=== PATIENT | female | born 1970 | race Caucasian/White ===

== ENCOUNTER → 2017-03-03 | Outpatient (CLI) | payer OTHER | LOC: FIMAGING 11:07 | PROVIDERS: ATTEND Internal Medicine Cardiovascular Disease | DX: M54.9 Dorsalgia, unspecified (principal) ==

== ENCOUNTER 2018-03-10 14:51 | Emergency (ER) | payer OTHER ==
[2018-03-10] MEDS ORDERED: NS 1,000 ML IV ONE (15:03)
[2018-03-10] MEDS ORDERED: FAMOTIDINE 20 MG in NS 100 ML IV ONE (15:05)
[2018-03-10] MEDS ORDERED: ONDANSETRON 4 MG/2 ML VIAL IVP ONE (15:12)
--- NOTE | 2018-03-10 15:20 | EDPHY ---
H & P Time Seen by Provider: 03/10/18 15:02 HPI/ROS: HPI Abdominal pain. 47-year-old female by private vehicle. This patient reports that since Friday evening she has had nausea with associated right upper and right mid abdominal pain. She describes the pain as dull, aching and cramping. She reports that she has had some radiation of the pain to her right flank at times. She reports that she has had a decreased appetite. She reports that she usually is able to eat some solid foods and drink fluids in the morning but in the evening her nausea worsens and her pain increases in intensity. She has had 2-3 episodes of nonbilious nonbloody vomiting since Friday in association with this pain. She reports that her last bowel movement was 2 days ago. Denies any bloody or melenic stool. No diarrhea. Prior abdominal surgical history is significant for uterine fibroids. Last menstrual period about a month ago. She denies any urinary complaints. No change in diet. No ill contacts. No foreign travel. Her last meal was an organic fruit bar earlier this morning. She also had coffee in milk this morning. ROS: Constitutional: No fever, no chills. No weakness. Eyes: No discharge. No changes in vision. ENT: No sore throat. No nasal congestion or rhinorrhea. Respiratory: No cough. No shortness of breath. Cardiac: No chest pain, no palpitations. Gastrointestinal: As above, no diarrhea. Genitourinary: No hematuria. No dysuria or increased frequency with urination. Musculoskeletal: No back pain. No neck pain. No myalgias or arthralgias. Skin: No rashes. Neurological: No headache. No focal weakness or altered sensation. Past medical history: She is allergic to sulfa medications. She has a vague history of reactive airway disease thought to be secondary to a mild form of cystic fibrosis. Social history: Nonsmoker. No alcohol. She is . She is currently here by herself. Physical Exam: General Appearance: Alert, no distress. This patient is responding to questions appropriately and in full sentences. This patient appears well- hydrated and well-nourished. Eyes: Pupils equal and round no pallor or injection. No lid edema, erythema or injection. Respiratory: There are no retractions, lungs are clear to auscultation with good air movement bilaterally. Cardiovascular: Regular rate and rhythm. No murmur. Gastrointestinal: Abdomen is soft with mild and vague right upper quadrant and right mid abdominal tenderness on palpation, no masses, bowel sounds normal. No focal tenderness at McBurney's point. No Goer sign. Neurological: Motor sensory function is grossly intact. Cranial nerves are normal. Gait is normal. Skin: Warm and dry, no rashes. Musculoskeletal: Neck is supple and nontender. No CVA tenderness bilaterally. Extremities are symmetrical. All joints range without pain or impingement. Psychiatric: No agitation. No depression. Database: EKG: Imaging: Right upper quadrant abdominal ultrasound: Negative. Results were discussed with staff radiologist. CT scan abdomen and pelvis with IV contrast: Uterine fibroids otherwise this is a negative study. Procedures: Emergency department course: Vital signs reviewed and are normal. IV was placed. She was started on IV normal saline with 500 cc to 1 L to be given over the next hour. She currently is complaining of nausea. She will be given 20 mg of IV Pepcid and 4 mg of IV Zofran. She declines pain medication at this time. Emergency department workup will initially include blood work, urinalysis and right upper quadrant ultrasound. 4:00 p.m., the patient was re-evaluated, resting comfortably at this time. Repeat abdominal exam is unchanged from above. I discussed the results of her ultrasound and emergency department workup including blood work and urinalysis. CT scan of the abdomen and pelvis will be obtained to further evaluate for a source of her pain, nausea and vomiting. The patient endorses. 5:00 p.m., the patient was re-evaluated, resting comfortably at this time. Repeat abdominal exam she is soft, nontender nondistended. She has been drinking red isabel without issue. Results of her CT scan of her abdomen and pelvis discussed with her. I will have her follow up with her primary care physician for re-evaluation. She feels comfortable going home at this time. Return to emergency department precautions were thoroughly reviewed with her. All of her questions were answered. She was discharged from the emergency department in good condition. Differential Diagnosis: The differential diagnosis on this patient includes but is not limited to constipation, biliary colic, pyelonephritis/urinary tract infection, gastritis, pancreatitis. Appendicitis, bowel obstruction/volvulus unlikely. This represents a partial list of diagnoses considered. These considerations are based on history, physical exam, past history, reassessment and diagnostic testing. Smoking Status: Never smoked Constitutional: Initial Vital Signs Temperature (C) 37 C 03/10/18 15:01 Heart Rate 68 03/10/18 15:01 Respiratory Rate 16 03/10/18 15:01 Blood Pressure 137/87 H 03/10/18 15:01 O2 Sat (%) 97 03/10/18 15:01 O2 Delivery Mode Room Air Allergies/Adverse Reactions: gluten Allergy (Verified 03/10/18 15:04) Pt reports STOMACH ISSUES Sulfa (Sulfonamide Antibiotics) Allergy (Verified 03/10/18 15:04) Pt reports LIP SWELLING Home Medications: Medication Instructions Recorded Hypertonic Saline 03/10/18 Ondansetron Odt [Zofran Odt 4 mg 4 mg PO Q4PRN PRN #10 tab 03/10/18 (*)] Xopenex 03/10/18 Medical Decision Making - Diagnostics Imaging Results: Imaging Impressions Abdomen Ultrasound 03/10/18 15:12 Impression: Normal right upper quadrant ultrasound. Findings and recommendations discussed with Prisca Mulligan MD at 1552 hour, 03/10/2018. Abdomen CT 03/10/18 16:01 Impression: 1. No acute abdominopelvic process. 2. Large uterine fibroids, many of which are subserosal. If patient is having bulk or bleeding symptoms, may consider gynecologic consultation. 3. Bilateral adnexal cysts, normal if patient is premenopausal. Findings and recommendations discussed with Prisca Mulligan MD at 1634 hour, 03/10/2018. - Data Points Laboratory Results: 03/10/18 15:34 POC Sodium 137 mEq/L mEq/L (135-145) POC Potassium 3.5 mEq/L mEq/L (3.3-5.0) POC Chloride 103.0 mEq/L mEq/L (97-110) POC Total CO2 22 mEq/L mEq/L (22-31) POC BUN 7 mg/dL mg/dL (7-23) POC Creatinine 0.8 mg/dL mg/dL (0.6-1.0) POC Glucose 101 mg/dL H mg/dL (70-100) POC Calcium 9.2 mg/dL mg/dL (8.5-10.4) POC Total Bilirubin 1.0 mg/dL mg/dL (0.1-1.4) POC AST 23 IU/L IU/L (14-46) POC ALT 19 IU/L IU/L (9-52) POC Alk Phosphatase 55 IU/L IU/L (38-126) POC Total Protein 7.2 g/dL g/dL (6.3-8.2) POC Albumin 4.1 g/dL g/dL (3.5-5.0) Medications Given: Discontinued Medications Sodium Chloride (Ns) 1,000 mls @ 0 mls/hr IV EDNOW ONE; Wide Open PRN Reason: Protocol Stop: 03/10/18 15:04 Last Admin: 03/10/18 15:25 Dose: 1,000 mls Famotidine 20 mg/ Sodium (Chloride) 102 mls @ 408 mls/hr IV EDNOW ONE Stop: 03/10/18 15:19 Last Admin: 03/10/18 15:27 Dose: 102 mls Ondansetron HCl (Zofran) 4 mg IVP EDNOW ONE Stop: 03/10/18 15:13 Last Admin: 03/10/18 15:25 Dose: 4 mg Point of Care Test Results: CBC CBC Collection Date 03/10/18 CBC Collection Time 15:22 WBC 10.2 RBC 4.45 HGB 14.2 HCT 40.2 PLT 390 Neut # 7.2 Neut 70.1 LYMPH # 2.4 LYMPH 23.6 Other WBC # 0.6 Other WBC 6.3 MCV 90.3 Chemistry 03/10/18 15:34 POC Sodium 137 mEq/L mEq/L (135-145) POC Potassium 3.5 mEq/L mEq/L (3.3-5.0) POC Chloride 103.0 mEq/L mEq/L (97-110) POC Total CO2 22 mEq/L mEq/L (22-31) POC BUN 7 mg/dL mg/dL (7-23) POC Creatinine 0.8 mg/dL mg/dL (0.6-1.0) POC Glucose 101 mg/dL H mg/dL (70-100) POC Calcium 9.2 mg/dL mg/dL (8.5-10.4) POC Total Bilirubin 1.0 mg/dL mg/dL (0.1-1.4) POC AST 23 IU/L IU/L (14-46) POC ALT 19 IU/L IU/L (9-52) POC Alk Phosphatase 55 IU/L IU/L (38-126) POC Total Protein 7.2 g/dL g/dL (6.3-8.2) POC Albumin 4.1 g/dL g/dL (3.5-5.0) Comprehensive Metabolic Panel CMP Collection Date 03/10/18 CMP Collection Time 15:22 Urine Collection Date 03/10/18 Collection Time 15:20 HCG Results Negative Urine Dip Collection Date 03/10/18 Collection Time 15:20 Specific Earle (1.002-1.030) 1.015 PH (5.0-7.5) 5.5 Leukocytes (Negative) Negative Nitrites (Negative) Negative Protein (Negative) Negative Glucose (Negative) Negative Ketones (Negative) 2+ Urobilnogen (0.2-1.0 EU) 0.2 Bilirubin (Negative) Negative Blood (Negative) 1+ Departure - Departure Disposition: Home, Routine, Self-Care Clinical Impression: Abdominal pain, Nausea & vomiting, Uterine fibroid Condition: Good Instructions: Abdominal Pain (ED) Additional Instructions: Read and follow provided instructions. Follow-up with your primary care physician or OBGYN in 1-2 days for re- evaluation as discussed. Ibuprofen dosin mg every 6 hours with meals for the next 3 days only. Take only as needed for pain. Take medication as prescribed for nausea. Return to the emergency department for worsening pain, fever, vomiting and inability to keep fluids down despite medication or other serious concerns. Referrals: NONE *PRIMARY CARE P,. [Primary Care Provider] - As per Instructions Prescriptions: Ondansetron Odt [Zofran Odt 4 mg (*)] 4 mg PO Q4PRN PRN #10 tab PRN Reason: For Nausea & Vomiting
[2018-03-10] MEDS ORDERED: NS 100 ML BAG IV ONE (15:30)
[2018-03-10 17:21] VITALS: BP 129/79
== END 2018-03-10 17:13 | disposition home or self-care (01) ==
LOC: CED 14:51
DX: R10.11 Right upper quadrant pain (principal); R11.2 Nausea with vomiting, unspecified; D25.9 Leiomyoma of uterus, unspecified
CPT/HCPCS: 74177-PO; 76705-PO; 80053-PO; 96374; J2405